=== PATIENT | female | born 1990 | race Caucasian/White ===

== ENCOUNTER 2019-12-04 23:59 | Emergency (ER) | payer OTHER ==
[~2019-12-04] VITALS: Ht 162.6 cm; Wt 47.7 kg
[~2019-12-04 23:59] MED LIST: NO HOME MEDICATIONS
[2019-12-05 00:04] VITALS: TEMP 98.4
[2019-12-05 02:32] VITALS: BP 116/78; PULSE 91
== END 2019-12-05 02:32 | disposition home or self-care (01) ==
LOC: COL.ER 23:59
DX: J10.1 Influenza due to other identified influenza virus with other respiratory manifestations (principal); R00.2 Palpitations